=== PATIENT | female | born 1945 | race Caucasian/White ===

== ENCOUNTER 2017-09-05 09:34 | Emergency (ER) | payer MEDICARE, BC ==
--- NOTE | 2017-09-05 10:24 | RAD ---
AP CHEST: Indication: Weakness, fever. Comparison: Acute abdominal series 12-26-15. FINDINGS: There is mild cardiomegaly. There are low lung volumes. No confluent airspace opacity or pleural effu sions noted. No acute osseous abnormality is evident. IMPRESSION: 1. Low lung volumes. 2. Mild cardiomegaly. POS: [facility]
[2017-09-05 10:37] LABS: #Lymphocytes 0.5 thou/uL (1.20-3.40); #Monocytes 0.5 thou/uL (0.11-0.59); #Neutrophils 3.2 thou/uL (1.40-6.50); %Basophils 1.1 % (0.0-1.0); %Eosinophils 1.1 % (0.0-10.0); %Lymphocytes 11.2 % (21.0-51.0); %Monocytes 11.1 % (0.0-10.0); Hematocrit 39.6 % (36.0-47.0); Mean Platelet Volume 8.1 fL (7.4-10.4); Red Blood Cell (RBC) Count 4.56 mill/uL (4.20-5.40); White Blood Cell (WBC) Count 4.3 thou/uL (4.8-10.8)
[2017-09-05 10:54] LABS: Lactic Acid - Sepsis 1.1 mmol/L (0.5-2.2)
[2017-09-05] MEDS ORDERED: Acetaminophen 500 MG TAB ONE (11:01)
[2017-09-05 11:08] LABS: Troponin I Less than 0.010 ng/mL (< 0.028)
[2017-09-05 11:20] LABS: ALT (SGPT) 31 U/L (8-55); AST (SGOT) 42 U/L (5-34); Alkaline Phosphatase 79 U/L (40-150); Anion Gap 12 mmol/L (10-20); BUN (Urea Nitrogen) 12 mg/dL (9.8-20.1); Bilirubin, Total 0.4 mg/dL (0.2-1.2); CK (CPK) 144 U/L (29-168); Calc. Creatinine Clearance 0 mL/min (70-130); Calcium 9.3 mg/dL (7.8-10.44); Carbon Dioxide 26 mmol/L (23-31); Chloride 99 mmol/L (98-107); Estimated GFR-MDRD 43; Globulin 4.2 g/dL (2.4-3.5); Lipase 61 U/L (8-78); Protein, Total 8.2 g/dL (6.0-8.3)
[2017-09-05 11:20] LABS: Bilirubin Negative (Negative); Blood, Urine Negative (Negative); Glucose, Urine (Dipstick) Negative (Negative); Ketone, Urine Negative (Negative); Nitrite Negative (Negative); Protein, Urine (Dipstick) Negative (Neg-Trace)
== END 2017-09-05 11:51 | disposition home or self-care (01) ==
LOC: ERS 09:34
DX: J11.1 Influenza due to unidentified influenza virus with other respiratory manifestations (principal); E03.9 Hypothyroidism, unspecified; E78.00 Pure hypercholesterolemia, unspecified; I10 Essential (primary) hypertension; Z87.891 Personal history of nicotine dependence
CPT/HCPCS: 71010; 80053; 81003; 82553; 83605; 83690; 84484; 85025; 87040; 87086

== ENCOUNTER 2017-09-06 04:48 | Observation (INO) | payer MEDICARE, BC ==
[2017-09-06] MEDS ORDERED: Acetaminophen 325 MG TAB ONE (06:11)
[2017-09-06] MEDS ORDERED: Acetaminophen 325 MG/10.15 ML UDCUP ONE (06:19)
[2017-09-06] MEDS ORDERED: Meclizine HCl 25 MG TAB ONE (06:51)
[2017-09-06 07:03] LABS: #Lymphocytes 0.7 thou/uL (1.20-3.40); #Monocytes 0.4 thou/uL (0.11-0.59); %Basophils 1.1 % (0.0-1.0); %Eosinophils 1.2 % (0.0-10.0); %Lymphocytes 21.1 % (21.0-51.0); %Monocytes 12.2 % (0.0-10.0); Hematocrit 42.9 % (36.0-47.0); Red Blood Cell (RBC) Count 4.94 mill/uL (4.20-5.40); White Blood Cell (WBC) Count 3.2 thou/uL (4.8-10.8)
[2017-09-06 07:24] LABS: ALT (SGPT) 27 U/L (8-55); AST (SGOT) 36 U/L (5-34); Alkaline Phosphatase 79 U/L (40-150); Anion Gap 17 mmol/L (10-20); BUN (Urea Nitrogen) 16 mg/dL (9.8-20.1); Bilirubin, Total 0.4 mg/dL (0.2-1.2); CK (CPK) 182 U/L (29-168); Calc. Creatinine Clearance 0 mL/min (70-130); Calcium 9.4 mg/dL (7.8-10.44); Carbon Dioxide 20 mmol/L (23-31); Chloride 101 mmol/L (98-107); Estimated GFR-MDRD 46; Globulin 3.8 g/dL (2.4-3.5); Protein, Total 7.8 g/dL (6.0-8.3)
[2017-09-06 07:27] LABS: Troponin I Less than 0.010 ng/mL (< 0.028)
[2017-09-06] MEDS ORDERED: Ondansetron HCl/PF 4 MG/2 ML Vial ONE (08:27)
--- NOTE | 2017-09-06 08:36 | CT ---
CT BRAIN WITHOUT CONTRASTS: Comparison: 04-28-07 History: Constant dizziness, nausea. Technique: Multiple contiguous axial images were obtained in a CT of the brain without contrast. FINDINGS: There are scattered hypodensities in the subcortical and periventricular white matter, likely seconda ry to small vessel ischemic disease. No large confluent infarction is seen. There is no evidence of h ydrocephalus, intracranial hemorrhage or extraaxial fluid collection. The calvarium and overlying soft tissues are unremarkable. The visualized paranasal sinuses and masto id air cells are well aerated. IMPRESSION: No evidence of acute intracranial abnormality. POS: [facility]
[2017-09-06] MEDS ORDERED: Ondansetron HCl/PF 4 MG/2 ML Vial IVP PRN (12:26)
[2017-09-06] MEDS ORDERED: traMADol HCl 50 MG TAB PO PRN (12:26)
[2017-09-06] MEDS ORDERED: Bisacodyl 5 MG TAB PO PRN (12:26)
[2017-09-06] MEDS ORDERED: Milk Of Magnesia 30 ML UDCUP PO PRN (12:26)
[2017-09-06] MEDS ORDERED: hydrALAZINE 20 MG/ML VIAL SLOW IVP PRN (12:26)
[2017-09-06] MEDS ORDERED: Acetaminophen 325 MG TAB PO PRN (12:26)
[2017-09-06] MEDS ORDERED: Loratadine 10 MG TAB PO PRN (12:26)
[2017-09-06] MEDS ORDERED: Senokot 8.6 MG TAB PO PRN (12:26)
[2017-09-06] MEDS ORDERED: Mag-Al 1200 mg/1200 mg/30 ML UDCUP PO PRN (12:26)
[2017-09-06] MEDS ORDERED: Calcium Carbonate 500 MG ChewTAB PO PRN (12:26)
[2017-09-06] MEDS ORDERED: Benzonatate 100 MG CAP PO PRN (12:26)
[2017-09-06] MEDS ORDERED: cloNIDine 0.1 MG TAB PO PRN (12:26)
[2017-09-06] MEDS ORDERED: Nitroglycerin 0.4 MG TAB (25 Tab Bottle) SL PRN (12:26)
[2017-09-06] MEDS ORDERED: Diabetic Tussin 200 MG/10 ML UDCUP PO PRN (12:26)
[2017-09-06] MEDS: Sodium Chloride 0.9% 1,000 ML IV SCH (13:06)
--- NOTE | 2017-09-06 13:06 | HP ---
DATE OF ADMISSION: 09/06/2017 PRIMARY CARE PHYSICIAN: Dr. Moore. CHIEF COMPLAINT: Dizziness. HISTORY OF PRESENT ILLNESS: Ms. Matthews is a very pleasant 71-year-old female with past medical h istory of hypertension, dyslipidemia, and hypothyroidism who presented to the emergency room with the above-mentioned complaint. History is mainly obtained by the patient herself and electronic medical records have been reviewed. She was seen last in our establishment yesterday for complaints of coug h, fever, and malaise. She was found to have influenza type A. She was started on Tamiflu in the em ergency room and was discharged home. The patient did report having very poor appetite for the last 2-3 days since she has been sick. Today, she came back to the emergency room complaining of severe dizziness. Every time she is trying to move, she feels like she is spinning or the room is spinning. She also has a headache. She has no photophobia or phonophobia. She also complains of sore throat. She did take a Tamiflu yesterday, but she has not been able to take anything this morning. She feels that her nose is stuffed up. Kierra pierce is no longer having fevers, but still feeling malaise. Also, complains of generalized weakness. She otherwise denies any history of similar symptoms in the past. No chest pain, shortness of breath , orthopnea, PND or edema. She denies any hematochezia, melena or hematemesis. She denies any urina ry symptoms either. In the emergency room upon presentation, her blood pressure was 150/72 with a pulse of 62. She was s aturating 100% on room air. She underwent a CT scan of her brain, which was unremarkable. Her blood work showed somewhat low WBCs at 3.2, which is not new for her. Her sodium is slightly low at 134 a nd creatinine at 1.16, which was 1.23 yesterday. She has mild elevation of AST and creatinine kinase at 182. Cardiac enzymes are unremarkable. She has been given IV fluids in the ER along with some m eclizine and Zofran with improvement in her symptoms. She is now being admitted under observation st atus on medical floor. PAST MEDICAL HISTORY: 1. Hypertension. 2. Dyslipidemia. 3. Hypothyroidism. PAST SURGICAL HISTORY: Appendectomy. PSYCHIATRIC HISTORY: None. SOCIAL HISTORY: She lives with her daughter at home. She is otherwise independent with her ADLs and IADLs. No history of drug, alcohol or tobacco abuse. FAMILY HISTORY: No significant family history of premature coronary artery disease, CVA or cancer. ALLERGIES: Include LATEX. CURRENT MEDICATIONS: Include Tamiflu 75 mg p.o. b.i.d., acetaminophen with codeine as needed, Motrin as needed, Sudafed as needed, lisinopril/hydrochlorothiazide 20/12.5 mg daily, amlodipine 2.5 mg josue ly, levothyroxine 50 mcg daily and simvastatin 20 mg daily. REVIEW OF SYSTEMS: The following complete review of systems was negative, unless otherwise mentioned in the HPI or below: Constitutional: Weight loss or gain, ability to conduct usual activities. Skin: Rash, itching. Eyes: Double vision, pain. ENT/Mouth: Nose bleeding, neck stiffness, pain, tenderness. Cardiovascular: Palpitations, dyspnea on exertion, orthopnea. Respiratory: Shortness of breath, wheezing, cough, hemoptysis, fever or night sweats. Gastrointestinal: Poor appetite, abdominal pain, heartburn, nausea, vomiting, constipation, or diarr hea. Genitourinary: Urgency, frequency, dysuria, nocturia. Musculoskeletal: Pain, swelling. Neurologic/Psychiatric: Anxiety, depression. Allergy/Immunologic: Skin rash, bleeding tendency. LABORATORY DATA AND IMAGING: Her CBC is unremarkable. Serum chemistry shows sodium of 134, BUN 16, creatinine 1.16 with estimated GFR of 46. Total bilirubin is 0.4. CK-MB and troponin within normal limits. Creatinine kinase is 182. CT scan of the brain by my review has no evidence of acute hemorr melodie or infarction. Chest x-ray done yesterday is reviewed and shows some atelectasis, otherwise no pulmonary edema, effusions or infiltrates. A 12-lead EKG by my review shows normal sinus rhythm at 60 beats per minute with normal ST segments a nd normal T-waves. PHYSICAL EXAMINATION: VITAL SIGNS: Most recent vital signs include blood pressure 115/52, pulse of 80, respirations 18, te mperature 98.2, saturating 96% on room air. GENERAL: She appears somewhat pale, weak and tired looking, otherwise in no acute distress. Awake, alert, oriented x3, lying comfortably in bed. HEENT: Mucous membrane is dry. No oropharyngeal exudate or erythema. Head is normocephalic, atraum atic. Pupils equal, reactive to light and accommodation. Some lateral nystagmus is noticed. NECK: Supple without any lymphadenopathy, JVD or bruit. CHEST: Clear to auscultation without any wheezing, rales or rhonchi. CARDIOVASCULAR: Rate and rhythm is regular without any murmur, rubs or gallops. ABDOMEN: Soft, nontender, nondistended, positive bowel sounds. EXTREMITIES: Free of any cyanosis, clubbing, or edema. NEUROLOGICAL: [id number]-[id number] testing is intact. Gait is not checked. Muscle strength 5/5 in all 4 extremities, sensation is intact. PSYCHIATRIC: Normal affect. IMPRESSION AND PLAN: 1. Dizziness. This is likely secondary to poor p.o. intake along with the recent illness of influen za. We will add normal saline for hydration purposes and check orthostatics. Also add inhaled stero ids for nasal congestion. Continue Tamiflu for now. Vital sign check every 4 hours, repeat basic bl ood work including CBC and BMP in the morning. Continue symptomatic and supportive care. If her sym ptoms do not improve, we will start neuro-cardiological workup with transthoracic echocardiogram and possibly an MRI of the brain. The possibility of stroke is clinically low at this time. We will als o check a urine to rule out urinary tract infection. The patient has no dysuria at this time. 2. Acute kidney insufficiency. This is secondary to poor p.o. intake and recent illnesses. As abov e, we will rehydrate her and avoid any nephrotoxins and monitor. 3. Mild rhabdomyolysis. Once again, continue with IV fluids. The patient has been largely bedbound for the last 2-3 days. 4. History of hypertension. The blood pressure is on the lower side at this time. We will hold her antihypertensives. 5. Hypothyroidism. We will resume her home medications once again confirmed. 6. Influenza. We will continue the Tamiflu b.i.d. dosing for now. Droplet precautions have been in stituted. 7. Code status: Full code discussed with the patient. 8. Add p.r.n. medication orders. DISPOSITION: Ms. Matthews is being admitted for dizziness secondary to recent influenza illness an d poor p.o. intake related dehydration. She will be admitted under observation status for now. Furt her management will depend upon her clinical course.
[2017-09-06] MEDS ORDERED: Oseltamivir 75 MG CAP PO SCH (13:15)
[2017-09-06] MEDS: Oseltamivir 75 MG CAP PO SCH ×2 (13:18→20:49)
[2017-09-06 13:25] VITALS: BMI 35.6
[2017-09-06 16:08] LABS: Bilirubin Negative (Negative); Blood, Urine Negative (Negative); Glucose, Urine (Dipstick) Negative (Negative); Ketone, Urine Negative (Negative); Nitrite Negative (Negative); Protein, Urine (Dipstick) Negative (Neg-Trace); Urobilinogen 0.2 mg/dL (0.2-1.0)
[2017-09-06] MEDS: Fluticasone Propionate Nasal Spray 16 gm Bottle NASAL SCH (16:14)
[2017-09-06] MEDS: Acetaminophen 650 MG/20.3 ML UDCUP PO PRN ×2 (16:35→21:10)
[2017-09-06] MEDS ORDERED: Simvastatin 20 MG TAB PO SCH (21:00)
[2017-09-07] MEDS: Sodium Chloride 0.9% 1,000 ML IV SCH (01:54)
[2017-09-07 05:12] LABS: Anion Gap 10 mmol/L (10-20); BUN (Urea Nitrogen) 12 mg/dL (9.8-20.1); Calc. Creatinine Clearance 69 mL/min (70-130); Calcium 8.6 mg/dL (7.8-10.44); Carbon Dioxide 23 mmol/L (23-31); Chloride 107 mmol/L (98-107); Estimated GFR-MDRD 48
[2017-09-07 06:00] LABS: Hematocrit 38.1 % (36.0-47.0); Mean Platelet Volume 7.7 fL (7.4-10.4); Neutrophil 30 % (42-75); Red Blood Cell (RBC) Count 4.35 mill/uL (4.20-5.40); White Blood Cell (WBC) Count 3.1 thou/uL (4.8-10.8)
[2017-09-07] MEDS ORDERED: Levothyroxine Sodium 50 MCG TAB PO SCH (06:00)
[2017-09-07 08:12] VITALS: BP 128/57; TEMP 97.7
[2017-09-07] MEDS: Oseltamivir 75 MG CAP PO SCH (08:33)
[2017-09-07] MEDS: Fluticasone Propionate Nasal Spray 16 gm Bottle NASAL SCH (08:33)
[2017-09-07] MEDS ORDERED: Amlodipine 5 MG TAB PO SCH (09:00)
--- NOTE | 2017-09-07 17:10 | DIS ---
DATE OF ADMISSION: 09/06/2017 DATE OF DISCHARGE: 09/07/2017 CONDITION AT THE TIME OF DISCHARGE: Stable and improved. PRIMARY CARE PHYSICIAN: Dr. John Moore. DISCHARGE MEDICATIONS: Remain the same as admission medication except for the addition of Tamiflu 1 capsule p.o. b.i.d. to finish a course of total of 5 days. DISCHARGE DIAGNOSES: 1. Influenza type A. 2. Dizziness secondary to dehydration. 2. Dehydration due to poor p.o. intake. SECONDARY DISCHARGE DIAGNOSES: Hypertension, dyslipidemia, hypothyroidism. DISCHARGE DISPOSITION: Home. HISTORY OF PRESENTING ILLNESS: Ms. Matthews is a very pleasant 71-year-old female who was recently diagnosed with influenza B prior to this admission in the emergency room and was sent home on Tamifl u. She came back to the ER with persistent dizziness and weakness. She was found to be somewhat deh ydrated and was admitted for observation. She had mild acute kidney insufficiency on admission. Ple ase see admission history and physical for further details. HOSPITAL COURSE: The patient was started on IV fluids and restarted on Tamiflu. She had significant improvement in her symptoms and actually her dizziness has completely resolved. Her renal insuffici ency is getting better and her creatinine is down to 1.13 from 1.23 with a GFR of 48 from 43. Urinal ysis was done and has no evidence to suggest any infection. She was seen and examined prior to discharge. Her vital signs were stable this morning with blood pr essure of 128/57. No acute distress. Chest is clear to auscultation bilaterally. No murmurs, rubs or gallops. Rate and rhythm is regular. Overall, Ms. Matthews looks and feels much better and will be discharged back home to follow up [facility] primary care physician and she will follow the course of Tamiflu as an outpatient. Home medication s were reconciled and she will restart them.
[2017-09-09] MEDS ORDERED: Sodium Chloride 0.65% Nasal 44 ML BOT EA NARE PRN (13:15)
== END 2017-09-07 11:31 | disposition home or self-care (01) ==
LOC: ERS 04:48 → 2SW 12:20
PROVIDERS: ADMIT Internal Medicine; ATTEND Internal Medicine
DX: J10.1 Influenza due to other identified influenza virus with other respiratory manifestations (principal); E86.0 Dehydration; R42 Dizziness and giddiness; I10 Essential (primary) hypertension; E78.5 Hyperlipidemia, unspecified; E03.9 Hypothyroidism, unspecified; N17.9 Acute kidney failure, unspecified; Z79.899 Other long term (current) drug therapy; Z91.040 Latex allergy status; Z90.49 Acquired absence of other specified parts of digestive tract; Z87.891 Personal history of nicotine dependence
CPT/HCPCS: 70450; 80048; 80053; 81003; 82550; 82553; 84484; 85025 ×2; 93005; 96361 ×3; 96374; 99285; G0378; 36415; A4216; J2405